=== PATIENT | male | born 1950 | race Two or more races ===

== ENCOUNTER → 2024-05-09 | Outpatient (CLI) | payer MEDICARE, BC, SELFPAY ==
[2024-05-09 08:53] LABS: Albumin, Serum 4.6 gm/dL (3.4-4.8); Anion Gap 9 (7-16); BUN/Creatinine Ratio 16 Ratio (12-20); Blood Urea Nitrogen 22 mg/dL (9-23); Calcium 8.3 mg/dL (8.3-10.6); Calcium (Corrected) 8.3 mg/dL (8.5-10.1); Carbon Dioxide 28.5 mMol/L (20.0-31.0); Chloride 107 mMol/L (98-107); Creatinine (Component) 1.4 mg/dL (0.6-1.3); Glucose 111 mg/dL (74-106); Osmolality,Calculated 291 (275-295); Phosphorous 1.3 mg/dL (2.4-5.1); Potassium 3.7 mMol/L (3.4-5.1); Sodium 144 mMol/L (136-145); eGFR 53 See Note
== END | disposition home or self-care (01) ==
LOC: COPL 07:30
PROVIDERS: PCP Internal Medicine Hospice and Palliative Medicine; Referring Provider Internal Medicine; Visit Provider Internal Medicine
DX: I12.9 Hypertensive chronic kidney disease with stage 1 through stage 4 chronic kidney disease, or unspecified chronic kidney disease (principal); E11.22 Type 2 diabetes mellitus with diabetic chronic kidney disease; N18.2 Chronic kidney disease, stage 2 (mild)
CPT/HCPCS: 36415; 80069

== ENCOUNTER → 2024-08-10 | Outpatient (CLI) | payer MEDICARE, BC, SELFPAY ==
[2024-08-10 08:39] LABS: Basophils # (Auto) 0.1 Thou/mm3 (0.0-0.2); Basophils % (Auto) 1 % (0-2.5); Eosinophils # (Auto) 0.2 Thou/mm3 (0.0-0.5); Eosinophils % (Auto) 3 % (0-10); Hematocrit 44.3 % (41.0-53.0); Hemoglobin 14.3 g/dL (13.5-16.0); Immature Granulocytes % (Auto) 0 % (0-0); Immature Granulocytes Auto 0.02 Thou/mm3 (0.00-0.00); Lymphocytes # (Auto) 2.9 Thou/mm3 (1.0-4.8); Lymphocytes % (Auto) 36 % (10-50); Mean Corpuscular HGB Conc 32.3 g/dl (31.0-37.0); Mean Corpuscular Hemoglobin 30.6 pg (25.0-35.0); Mean Corpuscular Volume 95 fL (80-100); Monocytes # (Auto) 0.7 Thou/mm3 (0.0-0.8); Monocytes % (Auto) 9 % (0-12); Neutrophils # (Auto) 4.2 Thou/mm3 (1.8-7.7); Neutrophils % (Auto) 52 % (37-80); Nucleated Red Blood Cell % 0 /100 WBC (0); Platelet Count 221 Thou/mm3 (140-440); RDW Standard Deviation 50.4 fL (35.1-43.9); Red Blood Count 4.68 Miln/mm3 (4.50-5.90); White Blood Count 8.1 Thou/mm3 (3.8-10.6)
[2024-08-10 08:47] LABS: Vitamin D 25 Hydroxy Total 32.3 ng/mL (7.3-40.2)
[2024-08-10 08:49] LABS: Albumin, Serum 4.4 gm/dL (3.4-4.8); Anion Gap 9 (7-16); BUN/Creatinine Ratio 17 Ratio (12-20); Blood Urea Nitrogen 27 mg/dL (9-23); Calcium 8.9 mg/dL (8.3-10.6); Calcium (Corrected) 8.9 mg/dL (8.5-10.1); Carbon Dioxide 27.4 mMol/L (20.0-31.0); Chloride 107 mMol/L (98-107); Creatinine (Component) 1.6 mg/dL (0.6-1.3); Glucose 131 mg/dL (74-106); Osmolality,Calculated 292 (275-295); Phosphorous 3.4 mg/dL (2.4-5.1); Sodium 143 mMol/L (136-145); eGFR 45 See Note
[2024-08-10 08:51] LABS: Creatinine,Random Urine 135 mg/dL (30-125); Protein Total, Random Urine 26 mg/dL (1-14)
== END | disposition home or self-care (01) ==
LOC: COPL 07:16
PROVIDERS: PCP Internal Medicine Hospice and Palliative Medicine; Referring Provider Internal Medicine; Visit Provider Internal Medicine
DX: I12.9 Hypertensive chronic kidney disease with stage 1 through stage 4 chronic kidney disease, or unspecified chronic kidney disease (principal); E11.22 Type 2 diabetes mellitus with diabetic chronic kidney disease; N18.2 Chronic kidney disease, stage 2 (mild)
CPT/HCPCS: 36415; 80069; 82306; 82570; 84156; 85025

== ENCOUNTER → 2024-12-01 | Outpatient (CLI) | payer MEDICARE, BC, SELFPAY ==
[2024-12-01 09:47] LABS: Albumin, Serum 4.5 gm/dL (3.4-4.8); Anion Gap 11 (7-16); BUN/Creatinine Ratio 13 Ratio (12-20); Blood Urea Nitrogen 20 mg/dL (9-23); Calcium 9.0 mg/dL (8.3-10.6); Calcium (Corrected) 9.0 mg/dL (8.5-10.1); Carbon Dioxide 26.9 mMol/L (20.0-31.0); Chloride 104 mMol/L (98-107); Creatinine (Component) 1.6 mg/dL (0.6-1.3); Glucose 144 mg/dL (74-106); Osmolality,Calculated 288 (275-295); Phosphorous 3.2 mg/dL (2.4-5.1); Potassium 4.1 mMol/L (3.4-5.1); Sodium 142 mMol/L (136-145); eGFR 45 See Note
== END | disposition home or self-care (01) ==
LOC: COPL 07:57
PROVIDERS: PCP Internal Medicine Hospice and Palliative Medicine; Referring Provider Internal Medicine; Visit Provider Internal Medicine
DX: I12.9 Hypertensive chronic kidney disease with stage 1 through stage 4 chronic kidney disease, or unspecified chronic kidney disease (principal); E11.22 Type 2 diabetes mellitus with diabetic chronic kidney disease; N18.2 Chronic kidney disease, stage 2 (mild)
CPT/HCPCS: 36415; 80069

== ENCOUNTER 2025-01-03 09:00 | Emergency (ER) | payer MEDICARE, BC, SELFPAY ==
[2025-01-03 09:44] VITALS: BP 136/76; PULSE 52; RESP 16; TEMP 36.9; O2SAT 96; BMI 35.2
--- NOTE | 2025-01-03 09:51 | XR_ITS ---
Examination: CT abdomen and pelvis without contrast. Coronal 3-D reconstructions. Sagittal 2-D reconstructions. Date and time of exam:January 03, 2025 1016 hours INDICATIONS: Lower abdominal pain flank pain beginning today. CTDI: vol (mGy): 10.3. DLP: (mGycm): 694. Technique: Axial images of the abdomen have been obtained, 3 mm slice thickness Intravenous contrast material has not been administered. Low dose protocols were performed. One or more of the following dose reduction techniques were used; automated exposure control, adjustment of the mA and/or KV according to patient size, use of iterative reconstruction technique. Findings: No focal liver or splenic lesions. Absent gallbladder. No pancreatic or adrenal mass. Moderate renal parenchymal scar formation with benign right renal cyst. Perinephric stranding. No renal or ureteral calculi, no hydronephrosis Abdominal aortic calcification Normal appendix No bowel obstruction 20 mm fat-containing umbilical hernia Colon shows wall thickening diffusely axial image 176 No diverticulitis Urinary bladder wall shows mild thickening AP prostate dimension 4 cm Severe osteopenia IMPRESSION: Moderate bilateral renal parenchymal scar formation Perinephric stranding, consider urinary tract infection. Normal appendix Diffuse nonspecific colitis pattern, most prominent in the sigmoid colon Minimal cystitis pattern
--- NOTE | 2025-01-03 09:52 | PD.EDRME ---
Rapid Medical Screening Exam RME Arrival date/time: 01/03/25 09:00 74-year-old male presents to the Emergency Department for complaint of back pain Chief Complaint: Back Pain/Injury Vital signs: Vital Signs Temperature 98.5 F 01/03/25 09:44 Pulse Rate 52 L 01/03/25 09:44 Respiratory Rate 16 01/03/25 09:44 Blood Pressure 136/76 H 01/03/25 09:44 Pulse Oximetry (%) 96 01/03/25 09:44 Oxygen Delivery Method Room Air 01/03/25 09:44
[2025-01-03 10:47] LABS: Collection Type, Urine Clean Catch
[2025-01-03 11:19] LABS: Bilirubin,Urine Negative (Negative); Blood,Urine Negative (Negative); Clarity,Urine Clear (Clear/Hazy); Color,Urine Lt-Yellow (Lt Yel-Yel); Culture Indicated,Urine Not Indicated; Glucose, Urine 4+ (Negative); Ketones,Urine Negative (Negative); Leukocyte Esterase,Urine Positive (Negative); Nitrite,Urine Negative (Negative); PH,Urine 5.5 (5.0-7.0); Protein,Urine Negative (Neg - Trace); RBC,Urine 1 /hpf (0-3); Specific Gravity,Urine 1.012 (1.001-1.035); Squamous Epithelial Cell,Urine < 1 /hpf (0-5); Urobilinogen,Urine Negative mg/dL (0.0-1.0); WBC,Urine 4 /hpf (0-5)
[2025-01-03 11:35] LABS: Basophils # (Auto) 0.0 Thou/mm3 (0.0-0.2); Basophils % (Auto) 1 % (0-2.5); Eosinophils # (Auto) 0.2 Thou/mm3 (0.0-0.5); Eosinophils % (Auto) 3 % (0-10); Hematocrit 43.9 % (41.0-53.0); Hemoglobin 14.3 g/dL (13.5-16.0); Immature Granulocytes Auto 0.01 Thou/mm3 (0.00-0.00); Lymphocytes # (Auto) 2.3 Thou/mm3 (1.0-4.8); Lymphocytes % (Auto) 29 % (10-50); Mean Corpuscular HGB Conc 32.6 g/dl (31.0-37.0); Mean Corpuscular Hemoglobin 31.0 pg (25.0-35.0); Mean Corpuscular Volume 95 fL (80-100); Monocytes # (Auto) 0.7 Thou/mm3 (0.0-0.8); Monocytes % (Auto) 9 % (0-12); Neutrophils # (Auto) 4.8 Thou/mm3 (1.8-7.7); Neutrophils % (Auto) 59 % (37-80); Nucleated Red Blood Cell # 0.00 Thou/mm3 (0.00-0.00); Nucleated Red Blood Cell % 0 /100 WBC (0); Platelet Count 186 Thou/mm3 (140-440); RDW Standard Deviation 47.0 fL (35.1-43.9); Red Blood Count 4.61 Miln/mm3 (4.50-5.90); White Blood Count 8.0 Thou/mm3 (3.8-10.6)
[2025-01-03 11:48] LABS: Alanine Aminotransferase 38 U/L (10-49); Albumin, Serum 4.5 gm/dL (3.4-4.8); Albumin/Globulin Ratio 2.0 (1.2-2.2); Alkaline Phosphatase 88 U/L (46-116); Anion Gap 12 (7-16); Aspartate Amino Transferase 44 U/L (0-34); BUN/Creatinine Ratio 12 Ratio (12-20); Bilirubin,Total 1.2 mg/dL (0.3-1.2); Blood Urea Nitrogen 19 mg/dL (9-23); Calcium 10.0 mg/dL (8.3-10.6); Calcium (Corrected) 10.0 mg/dL (8.5-10.1); Carbon Dioxide 26.2 mMol/L (20.0-31.0); Chloride 103 mMol/L (98-107); Creatinine (Component) 1.6 mg/dL (0.6-1.3); Estimated Creatinine Clearance 46.1 mL/min (>60); Globulin 2.3 gm/dL (2.3-3.5); Glucose 120 mg/dL (74-106); Lipase 48 U/L (12-53); Osmolality,Calculated 284 (275-295); Potassium 3.9 mMol/L (3.4-5.1); Sodium 141 mMol/L (136-145); Total Protein 6.8 gm/dL (5.7-8.2); eGFR 45 See Note
--- NOTE | 2025-01-03 12:44 | EDNOTE_ITS ---
<Statement entered by Arlet Rangel MD - 01/13/25 11:11> As co-signing physician, I was present and available for consult prn. I concur with the plan and care as documented by the midlevel provider. ED Back Injury Pain RME/HPI General Chief Complaint: Back Pain/Injury Stated Complaint: B/L FLANK PAIN X1 WK Time Seen by Provider: 01/03/25 12:25 Arrival date/time: 01/03/25 09:00 RME / HPI RME / HPI Narrative: 74-year-old male presents to the Emergency Department for complaint of back pain, both upper and low back pain, has been ongoing for the last 1 week, patient probably twisted the trauma according to him. Pain is sharp and lasts dull ache, severity mild. Patient is ambulatory. Denies any saddle anesthesia denies any bladder incontinence denies any bowel incontinence. Denies any fever denies any vomiting. Denies any other complaints no medications taken prior to arrival. Related Data Previous Rx's ?Medication ?Instructions ?Recorded methocarbamol 500 mg tablet 500 mg PO Q8H PRN pain #30 tabs 01/03/25 naproxen 500 mg tablet (Naprosyn) 500 mg PO BID PRN pa in #20 tabs 01/03/25 Allergies Allergy/AdvReac Type Severity Reaction Status Date / Time Iodinated Contrast Media Allergy Hives Verified 01/03/25 09:03 Review of Systems Review of Systems Narrative Review of Systems: Review of system reviewed and within normal limits except mentioned in HPI ED Exam Narrative Physical exam: VITAL SIGNS: Reviewed. GENERAL APPEARANCE: Alert and interactive, follows commands, no acute distress, HEAD AND FACE: Non-traumatic. ENT: PERRL, pink conjunctivitis, eyelid no trauma, Mucous membrane moist. NECK: Supple, nontender, no nuchal rigidity. CHEST: No tenderness, no crepitus, no paradoxical movement, no retractions. LUNGS: Clear, well ventilated, symmetric, no rales, no wheezing, no ronchi, no stridor, good breath sounds bilaterally. HEART: Regular rate, regular rhythm, no murmur, no gallops. ABDOMEN: Soft, positive bowel sounds, nondistended, no guarding, nontender, no rebound, no masses, RECTAL: Deferred. GENITAL: Deferred. NEUROLOGICAL: Gross motor function intact sensory function intact, Appropriate for age. EXTREMITIES: Nontender, full range of motion. SKIN: Color pink, dry, no rash, no lacerations, no abrasions, no contusions. LYMPHATICS: Deferred. Course Quality Measures none Orders Category Date Time Status CT abdomen pelvis wo con Stat Exams 01/03/25 09:51 Completed CBC Stat Lab 01/03/25 10:44 Completed Comprehensive Metabolic Panel Stat Lab 01/03/25 10:44 Completed Lipase Stat Lab 01/03/25 10:44 Completed UA, C/S IF [Urinalysis, C/S if Indicated] Stat Lab 01/03/25 10:28 Completed Vital Signs Vital signs: Vital Signs Temperature 98.5 F 01/03/25 09:44 Pulse Rate 52 L 01/03/25 09:44 Respiratory Rate 16 01/03/25 09:44 Blood Pressure 136/76 H 01/03/25 09:44 Pulse Oximetry (%) 96 01/03/25 09:44 Oxygen Delivery Method Room Air 01/03/25 09:44 Back Pain / Injury MDM Narrative MDM Narrative:: 74-year-old male presents to the Emergency Department for complaint of back pain, both upper and low back pain, has been ongoing for the last 1 week, patient probably twisted the trauma according to him. Pain is sharp and lasts dull ache, severity mild. Patient is ambulatory. Denies any saddle anesthesia denies any bladder incontinence denies any bowel incontinence. Denies any fever denies any vomiting. Denies any other complaints no medications taken prior to arrival. Patient's workup today all came back unremarkable except for slightly elevated creatinine 1.6. CT scan of the abdomen pelvis came back unremarkable. Results discussed with the patient. Urinalysis no UTI. Patient is probably having musculoskeletal pain over his thoracic and lumbar spine. Stable discharge home further imaging started at this time there is no sign of cauda equina syndrome at this time. Patient appears nontoxic and hemodynamically stable .Decision to discharge the patient. The patient/family was given an opportunity to ask questions and understood their discharge instructions. Discharge instructions specifically included follow up provider and time frame, current and/or new medications and possible side effects, indications for sooner follow up or return to the emergency department, and the expected course of current diagnosis. Patient reports feeling better as well and giving evidence of significant clinical improvement, I believe patient is now a candidate for discharge. Patient data External records reviewed:: None Clinical information provided by:: patient Social determinants that could affect healthcare access:: none Patient has the following chronic illnesses:: None How is presenting disease/condition affected by chronic disease/condition?: no chronic disease Evaluation data The following diagnostics were reviewed and interpreted by me:: lab results and radiology exam(s) Lab and/or radiology exams considered but not ordered:: None Interpretation Summary: See results in MDM Medications / Prescriptions Medications or Prescriptions considered but not ordered:: None Medication administrations:: None Consultations Consultation(s) initiated? (list below): No Diagnosis Differential diagnosis back pain/injury: lumbar radiculopathy, strain of lumbar region and thoracic back pain Most likely diagnosis given after review of the tests above:: Thoracic back pain, strain lumbar spine Admission Indicated Admission indicated?: not indicated Explain why admission is indicated or not indicated:: Stable Admission Request Was there a request for admission?: No Disposition Plan Disposition Plan: Discharge Discharge Attestation Discharge Attestation: The patient and all family members were given an opportunity to ask questions and understood the discharge instructions. Discharge instructions specifically effects, indications for sooner follow up or return to the emergency department, and the expected course of current diagnosis. Patient condition: Stable Discharge Plan Plan Patient Disposition: HOME (Self Care) Discharge Disposition comment: stable Prescriptions/Referrals Prescriptions/Med Rec: New naproxen [Naprosyn] 500 mg tablet 500 mg PO BID PRN (Reason: pain) Qty: 20 0RF methocarbamol 500 mg tablet 500 mg PO Q8H PRN (Reason: pain) Qty: 30 0RF Referrals: Aniket Spencer MD [Primary Care Provider] - In 1 week Problem List Clinical Impression: Thoracic back pain, Strain of lumbar region Patient/Caregiver Discharge Instructions Discharge Activity: activity as tolerated Education Materials: Back Exercises: Side Stretch Additional Instructions: Thank you for the opportunity for serving you today. You are stable for discharged . You are advised to: Follow-up with your PCP in 1 to 2 days Return to ED for worsening of symptoms Increase oral fluids Take medication as prescribed Print Language: Uruguayan Stand Alone Forms: El[employer]ia Award Info., Patient Portal Info Letter DEJUAN/LETICIA Supervising Physician DEJUAN/LETICIA Supervising Physician: MD Dale
== END 2025-01-03 13:00 | disposition home or self-care (01) ==
PROVIDERS: Nurse Practitioner Primary Care; Emergency Provider Emergency Medicine; PCP Internal Medicine Hospice and Palliative Medicine
DX: S39.012A Strain of muscle, fascia and tendon of lower back, initial encounter (principal); M54.6 Pain in thoracic spine; X58.XXXA Exposure to other specified factors, initial encounter
CPT/HCPCS: 36415; 74176; 80053; 81001; 83690; 85025; 99283

== ENCOUNTER 2025-01-25 03:36 | Emergency (ER) | payer MEDICARE, BC, SELFPAY ==
[2025-01-25 03:37] VITALS: BMI 35.2
[2025-01-25 03:50] VITALS: BP 146/79; PULSE 65; RESP 18; TEMP 37.9; O2SAT 95
[2025-01-25 03:59] LABS: Collection Type, Urine Clean Catch
[2025-01-25 04:14] LABS: Bilirubin,Urine Negative (Negative); Blood,Urine Negative (Negative); Clarity,Urine Clear (Clear/Hazy); Color,Urine Lt-Yellow (Lt Yel-Yel); Culture Indicated,Urine Not Indicated; Glucose, Urine 4+ (Negative); Ketones,Urine Negative (Negative); Leukocyte Esterase,Urine Negative (Negative); Nitrite,Urine Negative (Negative); PH,Urine 6.0 (5.0-7.0); Protein,Urine Negative (Neg - Trace); RBC,Urine < 1 /hpf (0-3); Specific Gravity,Urine 1.016 (1.001-1.035); Squamous Epithelial Cell,Urine < 1 /hpf (0-5); Urobilinogen,Urine Negative mg/dL (0.0-1.0); WBC,Urine 4 /hpf (0-5)
--- NOTE | 2025-01-25 04:24 | XR_ITS ---
Examination: CT abdomen and pelvis without contrast. Coronal 3-D reconstructions. Sagittal 2-D reconstructions. Date and time of exam:January 25, 2025, 1636 hrs. Indications: Onset right lower abdominal pain beginning yesterday CTDI: vol (mGy): 12.8 DLP: (mGycm): 707 Technique: Axial images of the abdomen have been obtained, 3 mm slice thickness Intravenous contrast material has not been administered. Low dose protocols were performed. One or more of the following dose reduction techniques were used; automated exposure control, adjustment of the mA and/or KV according to patient size, use of iterative reconstruction technique. Findings: No visualized liver or splenic lesion Gastric sutures Gallbladder not visualized No pancreatic or adrenal mass Right renal cystic lesions the largest 32 mm No renal or ureteral calculi, no hydronephrosis Abdominal aortic calcification no aneurysmal dilatation Diverticula in the cecum with significant inflammatory change, no abscess No bowel obstruction Tiny fat-containing inguinal hernia No bladder mass AP prostate dimension 37 mm Impression: Recommend renal sonography to confirm benign right renal cyst Acute diverticulitis cecum, no peridiverticular abscess
--- NOTE | 2025-01-25 04:25 | PD.EDRME ---
Rapid Medical Screening Exam [facility] Arrival date/time: 01/25/25 03:36 75M with history of HTN, DM, ab hernia surgery, and gastric bypass presents to ED with several days of RLQ/flank pain. Patient denies dysuria/hematuria. Chief Complaint: Abdominal Pain Vital signs: Vital Signs Temperature 100.2 F 01/25/25 03:50 Pulse Rate 65 01/25/25 03:50 Respiratory Rate 18 01/25/25 03:50 Blood Pressure 146/79 H 01/25/25 03:50 Pulse Oximetry (%) 95 01/25/25 03:50 Oxygen Delivery Method Room Air 01/25/25 03:50
--- NOTE | 2025-01-25 05:02 | PRELIM_ITS ---
CT scan of the abdomen and pelvis without intravenous contrast (axial sections with sagittal and coronal reformats) January 25, 2025 0434 hours Clinical History: Right flank/rlq pain. Comparison: No prior study is available for comparison. Findings: The lung bases are clear. The liver, pancreas, spleen, and adrenals are unremarkable on this noncontrast study. Right renal cystic lesions, the largest measuring 3.4 cm. No hydronephrosis. Mild bilateral perinephric fat stranding. Status postcholecystectomy. No biliary duct dilation. Status post gastric bypass surgery. No evidence of bowel obstruction. The appendix is within normal limits. There is no mesenteric or retroperitoneal adenopathy. The urinary bladder is unremarkable. There is no free fluid or free air. The osseous structures are unremarkable. Focal thickening of the cecum associated with peripheral fat stranding, no perforation, no collections. Diverticulosis of the colon. Impression: Acute diverticulitis of the cecum. Mild bilateral perinephric fat stranding suspicious for medical renal disease. Right renal cystic lesions, consider further evaluation for characterization. Report Electronically Signed By: Ottoniel Waltno 01/25/2025 5:02:38 AM [EST]
[2025-01-25 05:17] LABS: Lactate (Lactic Acid) 2.0 mMol/L (0.4-2.0)
[2025-01-25 05:25] LABS: Basophils # (Auto) 0.0 Thou/mm3 (0.0-0.2); Basophils % (Auto) 0 % (0-2.5); Eosinophils # (Auto) 0.1 Thou/mm3 (0.0-0.5); Eosinophils % (Auto) 1 % (0-10); Hematocrit 41.4 % (41.0-53.0); Hemoglobin 13.5 g/dL (13.5-16.0); Immature Granulocytes Auto 0.05 Thou/mm3 (0.00-0.00); Lymphocytes # (Auto) 1.8 Thou/mm3 (1.0-4.8); Lymphocytes % (Auto) 14 % (10-50); Mean Corpuscular HGB Conc 32.6 g/dl (31.0-37.0); Mean Corpuscular Hemoglobin 30.5 pg (25.0-35.0); Mean Corpuscular Volume 94 fL (80-100); Monocytes # (Auto) 1.3 Thou/mm3 (0.0-0.8); Monocytes % (Auto) 10 % (0-12); Neutrophils # (Auto) 9.5 Thou/mm3 (1.8-7.7); Neutrophils % (Auto) 75 % (37-80); Nucleated Red Blood Cell # 0.00 Thou/mm3 (0.00-0.00); Nucleated Red Blood Cell % 0 /100 WBC (0); Platelet Count 198 Thou/mm3 (140-440); RDW Standard Deviation 46.0 fL (35.1-43.9); Red Blood Count 4.43 Miln/mm3 (4.50-5.90); White Blood Count 12.7 Thou/mm3 (3.8-10.6)
[2025-01-25 05:55] LABS: Alanine Aminotransferase 32 U/L (10-49); Albumin, Serum 4.6 gm/dL (3.4-4.8); Albumin/Globulin Ratio 2.0 (1.2-2.2); Alkaline Phosphatase 101 U/L (46-116); Anion Gap 13 (7-16); Aspartate Amino Transferase 30 U/L (0-34); BUN/Creatinine Ratio 14 Ratio (12-20); Bilirubin,Total 1.4 mg/dL (0.3-1.2); Blood Urea Nitrogen 21 mg/dL (9-23); Calcium 8.8 mg/dL (8.3-10.6); Calcium (Corrected) 8.8 mg/dL (8.5-10.1); Carbon Dioxide 26.3 mMol/L (20.0-31.0); Chloride 103 mMol/L (98-107); Creatinine (Component) 1.5 mg/dL (0.6-1.3); Estimated Creatinine Clearance 48.4 mL/min (>60); Globulin 2.3 gm/dL (2.3-3.5); Glucose 143 mg/dL (74-106); Osmolality,Calculated 288 (275-295); Potassium 3.7 mMol/L (3.4-5.1); Procalcitonin 0.13 ng/ml (0.0-0.49); Sodium 142 mMol/L (136-145); Total Protein 6.9 gm/dL (5.7-8.2); eGFR 48 See Note
--- NOTE | 2025-01-25 06:27 | PD.EDABDPN ---
ED Abdominal Pain RME/HPI General Chief Complaint: Abdominal Pain Stated complaint: R FLANK PAIN Time seen by provider: 01/25/25 06:21 Arrival date/time: 01/25/25 03:36 Limitations: no limitations RME / HPI RME / HPI narrative: 01/25/25 03:36 75M with history of HTN, DM, ab hernia surgery, and gastric bypass presents to ED with several days of RLQ/flank pain. Patient denies dysuria/hematuria. Dr. Palma evaluation: Patient presents with right lower quadrant abdominal pain. Denies fevers chills nausea vomiting. Patient states that he has had difficulty with having bowel movements over the last couple days. Had a small bowel meant earlier today. Patient is passing gas. Denies drugs alcohol smoking. Also has a history of hypothyroidism and hyperlipidemia. Related Data Previous Rx's ?Medication ?Instructions ?Recorded methocarbamol 500 mg tablet 500 mg PO Q8H PRN pain #30 tabs 01/03/25 naproxen 500 mg tablet (Naprosyn) 500 mg PO BID PRN pain #20 tabs 01/03/25 ciprofloxacin HCl 500 mg tablet 500 mg PO Q12H #10 tabs 01/25/25 metronidazole 500 mg tablet 500 mg PO Q8H #15 tabs 01/25/25 Allergies Allergy/AdvReac Type Severity Reaction Status Date / Time Iodinated Contrast Media Allergy Hives Verified 01/25/25 03:40 ED Exam General Limitations: Present no limitations General appearance: Present alert and in no apparent distress Head Head exam: Present atraumatic and normocephalic Eye Eye exam: Present normal appearance, PERRL and EOMI ENT ENT exam: Present normal exam and normal oropharynx Neck Neck exam: Present normal inspection and full ROM Chest Chest inspection: Present normal inspection and symmetric chest wall rise Respiratory Respiratory exam: Present normal lung sounds bilaterally; Absent respiratory distress Cardiovascular Cardiovascular exam: Present regular rate and normal rhythm Abdominal Exam Abdominal exam: Present soft and tenderness (Tenderness palpation in the right lower quadrant, no rebound or guarding); Absent distention Extremities Exam Extremities exam: Present normal inspection Neurological Exam Neurological exam: Present alert, oriented X3 and CN II-XII intact Psychiatric Psychiatric exam: Present normal affect and normal mood Skin Skin exam: Present warm and dry Course Quality Measures none Orders Category Date Time Status EKG (ED ONLY) *Do not use* NOW Care 01/25/25 06:[address] abdomen pelvis wo con Stat Exams 01/25/25 04:24 Completed CXR [XR chest 1V] Stat Exams 01/25/25 06:29 Completed EKG (ED Only) Stat Exams 01/25/25 06:29 Draft CBC Stat Lab 01/25/25 04:55 Completed CMP [Comprehensive Metabolic Panel] Stat Lab 01/25/25 04:55 Completed Lactate (Lactic Acid) Stat Lab 01/25/25 04:55 Completed Procalcitonin Stat Lab 01/25/25 04:55 Completed Troponin I Stat Lab 01/25/25 04:55 Completed UA, C/S IF [Urinalysis, C/S if Indicated] Stat Lab 01/25/25 03:45 Completed Ciprofloxacin HCl [Ciprofloxacin] Med 01/25/25 06:39 Discontinued 500 mg PO X1 ONE metroNIDAZOLE [Flagyl] Med 01/25/25 06:39 Discontinued 500 mg PO X1 ONE Vital Signs Vital signs: Vital Signs Temperature 100.2 F 01/25/25 03:50 Pulse Rate 65 01/25/25 03:50 Respiratory Rate 18 01/25/25 03:50 Blood Pressure 146/79 H 01/25/25 03:50 Pulse Oximetry (%) 95 01/25/25 03:50 Oxygen Delivery Method Room Air 01/25/25 03:50 Abdominal Pain MDM MDM Narrative MDM Narrative:: Patient is a 75-year-old male seen emerged part concerns for abdominal pain. Vital signs and exam as listed. Patient evaluated by prior provider. Ordered labs, CT abdomen pelvis. Concern for bowel obstruction, perforation, diverticulitis among others. I also ordered an EKG and chest x-ray given abdominal pain is a chest pain equivalent. Has concern for ACS arrhythmia. Labs with evidence of leukocytosis 12.7, no left shift. No significant electrolyte abnormality, creatinine is 1.5, this is patient's baseline. T. bili 1.4, previously 1.2. Lactic acid normal. No other transaminitis. Procalcitonin not elevated. Urinalysis without evidence of infection. CT abdomen pelvis without contrast with evidence of right renal cystic lesions largest measuring 2.4 cm also mild bilateral perinephric fat stranding. Patient does not have a gallbladder. He is also status post gastric bypass. No evidence of bowel obstruction. There is focal thickening in the cecum associated with peripheral fat stranding no perforation no collections there is also evidence of diverticulosis. Findings concerning for acute diverticulitis. I provided patient with antibiotics. Patient is allergic to iodinated contrast. Concern for medical renal disease. EKG performed today at 6:45 AM, sinus rhythm, heart rate 60, normal intervals, nonspecific T wave changes, not a cardiac alert Troponin not elevated, chest x-ray unremarkable. On reevaluation patient hemodynamically stable not distressed will discharge to home with close return precautions. Patient data External records reviewed:: [facility] previous records Clinical information provided by:: patient Social determinants that could affect healthcare access:: none Patient has the following chronic illnesses:: See MDM How is presenting disease/condition affected by chronic disease/condition?: exacerbated by Evaluation data The following diagnostics were reviewed and interpreted by me:: lab results, radiology exam(s) and EKG tracing(s) Lab and/or radiology exams considered but not ordered:: None Interpretation Summary: See [facility] Medications / Prescriptions Medications or Prescriptions considered but not ordered:: None Medication administrations:: Medication Administration History Discontinued Medications Ciprofloxacin (Ciprofloxacin Hcl 250 Mg Tablet) 500 mg PO X1 ONE Stop: 01/25/25 06:40 Last Admin: 01/25/25 06:53 Dose: 500 mg Documented By: SHARATH Metronidazole (Metronidazole 250 Mg Tablet) 500 mg PO X1 ONE Stop: 01/25/25 06:40 Last Admin: 01/25/25 06:54 Dose: 500 mg Documented By: SHARATH See above Consultations Consultation(s) initiated? (list below): No Diagnosis Differential diagnosis abdominal pain: other Most likely diagnosis given after review of the tests above:: Diverticulitis Admission Indicated Admission indicated?: not indicated Admission Request Was there a request for admission?: No Disposition Plan Disposition Plan: Discharge Discharge Attestation Discharge Attestation: The patient and all family members were given an opportunity to ask questions and understood the discharge instructions. Discharge instructions specifically effects, indications for sooner follow up or return to the emergency department, and the expected course of current diagnosis. Patient condition: Stable Discharge Plan Plan Patient Disposition: HOME (Self Care) Prescriptions/Referrals Prescriptions/Med Rec: New ciprofloxacin HCl 500 mg tablet 500 mg PO Q12H Qty: 10 0RF metronidazole 500 mg tablet 500 mg PO Q8H Qty: 15 0RF No Action naproxen [Naprosyn] 500 mg tablet 500 mg PO BID PRN (Reason: pain) Qty: 20 0RF methocarbamol 500 mg tablet 500 mg PO Q8H PRN (Reason: pain) Qty: 30 0RF Problem List Clinical Impression: Diverticulitis Patient/Caregiver Discharge Instructions Education Materials: Diverticulosis Diverticulitis Additional Instructions: Please follow-up with your primary care doctor within the next 1 to 2 days. Take your antibiotic as prescribed. Return immediately if symptoms worsen, you develop a fever or any other symptom of concern. Print Language: Occitan Stand Alone Forms: Eladia Award Info., Patient Portal Info Letter
--- NOTE | 2025-01-25 06:29 | EKG_ITS ---
[facility] Test Date: 2025-01-25 Pat Name: GRACIELA BARROSO Department: Room: - Gender: Male [employer] Other Ranks: : [id number] Requested By: Melodie Christensen Order Number: [id number] Reading MD: Melodie Christensen Measurements Intervals [place] Rate: 60 P: 67 PA: 198 QRS: 5 QRSD: 97 T: 41 QT: 418 QTc: 419 Interpretive Statements SINUS RHYTHM INCOMPLETE RIGHT BUNDLE BRANCH BLOCK [90+ ms QRS DURATION, TERMINAL R IN V1/V2, 40+ ms S IN I/aVL/V4/V5/V6] No previous ECG available for comparison /store/S0/[id number].pdf
--- NOTE | 2025-01-25 06:29 | XR_ITS ---
Examination: AP chest single view Technique: AP portable upright chest single view Date and time: January 25, 2025, 0724 hrs. Indications: Right lower abdomen pain flank pain beginning today Findings: Minimal prominence left ventricle Mild ectasia thoracic aorta. No pneumonia or pulmonary edema. Moderate osteopenia Impression: No active disease
[2025-01-25 06:32] VITALS: BP 131/81; PULSE 68; RESP 18; TEMP 37.1; O2SAT 96
[2025-01-25] MEDS: CIPROFLOXACIN HCL 250 MG TABLET 500 MG PO (06:53)
[2025-01-25 06:56] LABS: Troponin I < 0.020 ng/mL (0.0-0.045)
[2025-01-25 07:05] VITALS: BP 114/66; PULSE 65; RESP 18; TEMP 37.2; O2SAT 96
[2025-01-25 07:50] VITALS: BP 102/62; PULSE 59; RESP 18; O2SAT 93
== END 2025-01-25 08:02 | disposition home or self-care (01) ==
LOC: SERX 08:01
PROVIDERS: Physician Assistant; Emergency Provider Emergency Medicine; PCP Internal Medicine Hospice and Palliative Medicine
DX: K57.32 Diverticulitis of large intestine without perforation or abscess without bleeding (principal); I45.10 Unspecified right bundle-branch block; I10 Essential (primary) hypertension
CPT/HCPCS: 36415; 71045; 74176; 80053; 81001; 83605; 84145; 84484; 85025; 93005; 99284; A9270

== ENCOUNTER → 2025-03-08 | Outpatient (CLI) | payer MEDICARE, BC, SELFPAY ==
[2025-03-08 09:08] LABS: Basophils # (Auto) 0.0 Thou/mm3 (0.0-0.2); Basophils % (Auto) 1 % (0-2.5); Eosinophils # (Auto) 0.2 Thou/mm3 (0.0-0.5); Eosinophils % (Auto) 3 % (0-10); Hematocrit 40.4 % (41.0-53.0); Hemoglobin 13.5 g/dL (13.5-16.0); Immature Granulocytes Auto 0.02 Thou/mm3 (0.00-0.00); Lymphocytes # (Auto) 2.1 Thou/mm3 (1.0-4.8); Lymphocytes % (Auto) 34 % (10-50); Mean Corpuscular HGB Conc 33.4 g/dl (31.0-37.0); Mean Corpuscular Hemoglobin 31.2 pg (25.0-35.0); Mean Corpuscular Volume 93 fL (80-100); Monocytes # (Auto) 0.6 Thou/mm3 (0.0-0.8); Monocytes % (Auto) 10 % (0-12); Neutrophils # (Auto) 3.3 Thou/mm3 (1.8-7.7); Neutrophils % (Auto) 52 % (37-80); Nucleated Red Blood Cell # 0.00 Thou/mm3 (0.00-0.00); Nucleated Red Blood Cell % 0 /100 WBC (0); Platelet Count 197 Thou/mm3 (140-440); RDW Standard Deviation 47.1 fL (35.1-43.9); Red Blood Count 4.33 Miln/mm3 (4.50-5.90); White Blood Count 6.3 Thou/mm3 (3.8-10.6)
[2025-03-08 09:26] LABS: Creatinine,Random Urine 85 mg/dL (30-125); Protein Total, Random Urine 25 mg/dL (1-14)
[2025-03-08 09:26] LABS: Vitamin D 25 Hydroxy Total 40.2 ng/mL (7.3-40.2)
[2025-03-08 09:30] LABS: Albumin, Serum 4.6 gm/dL (3.4-4.8); Anion Gap 10 (7-16); BUN/Creatinine Ratio 11 Ratio (12-20); Blood Urea Nitrogen 16 mg/dL (9-23); Calcium 9.2 mg/dL (8.3-10.6); Calcium (Corrected) 9.2 mg/dL (8.5-10.1); Carbon Dioxide 28.2 mMol/L (20.0-31.0); Chloride 105 mMol/L (98-107); Creatinine (Component) 1.4 mg/dL (0.6-1.3); Glucose 121 mg/dL (74-106); Osmolality,Calculated 287 (275-295); Phosphorous 3.5 mg/dL (2.4-5.1); Potassium 4.1 mMol/L (3.4-5.1); Sodium 143 mMol/L (136-145); eGFR 52 See Note
== END | disposition home or self-care (01) ==
LOC: COPL 07:50
PROVIDERS: PCP Internal Medicine Hospice and Palliative Medicine; Referring Provider Internal Medicine; Visit Provider Internal Medicine
DX: I12.9 Hypertensive chronic kidney disease with stage 1 through stage 4 chronic kidney disease, or unspecified chronic kidney disease (principal); E11.22 Type 2 diabetes mellitus with diabetic chronic kidney disease; N18.2 Chronic kidney disease, stage 2 (mild)
CPT/HCPCS: 36415; 80069; 82306; 82570; 84156; 85025